=== PATIENT | female | born 2000 | race Caucasian/White ===

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

== ENCOUNTER 2019-07-07 17:18 | Emergency (ER) | payer MEDICAID ==
[2019-07-07] MEDS ORDERED: PREDNISONE 20 MG TAB PO ONE (17:56)
[2019-07-07] MEDS ORDERED: IBUPROFEN 400 MG TABLET PO ONE (17:56)
--- NOTE | 2019-07-07 18:00 | Emergency Department Record ---
History of Present Illness - General Chief complaint: Lower Extremity Pain Stated complaint: LT LEG NUMBNESS, Time Seen by Provider: 07/07/19 17:50 Source: Patient Mode of Arrival: Ambulatory Limitations: No limitations - History of Present Illness Initial comments: 18 yo female presents to ED for evaluation of left sided low back pain symptoms that began earlier today. Patient reports that her symptoms began after playing with her dog yesterday, denies direct injury of trauma to the area. Patient denies lower extremity weakness, numbness over the groin region, or urinary retention symptoms. Patient denies health problems at her baseline, denies fevers, chills, history of IVDA, or previous spinal surgery. MD Complaint: Other (Back pain) Onset/Timin -: Hour(s) Location: Left, Other History of Same: No Radiation: Distal Quality: Sharp Consistency: Intermittent Improves with: Nothing Worsens with: Nothing Associated Symptoms: Denies other symptoms - Related Data Previous Rx's Medication Instructions Recorded Ibuprofen [Motrin] 800 mg PO Q6H PRN #30 tab 07/07/19 Prednisone [Prednisone 20Mg] 20 mg PO BID #9 tab 07/07/19 Allergies Allergy/AdvReac Type Severity Reaction Status Date / Time No Known Allergies Allergy PT UNSURE Verified 07/07/19 17:40 OF REACTION Travel Screening - Travel/Exposure Within Last 30 Days Have you traveled within the last 30 days?: No Review of Systems Constitutional: Denies: Chills, Fever, Malaise, Night sweats Eyes: Denies: Eye discharge, Eye pain ENT: Denies: Congestion, Ear pain, Epistaxis Respiratory: Denies: Cough, Dyspnea Cardiovascular: Denies: Chest pain, Dyspnea on exertion Endocrine: Denies: Fatigue, Heat or cold intolerance Gastrointestinal: Denies: Abdominal pain, Nausea, Vomiting Genitourinary: Denies: Incontinence, Retention Musculoskeletal: Reports: Back pain. Denies: Arthralgia Skin: Denies: Bruising, Change in color, Other Neurological: Reports: Numbness. Denies: Abnormal gait, Confusion, Headache, Tingling, Tremors Psychiatric: Denies: Anxiety Hematological/Lymphatic: Denies: Anemia, Blood Clots Past Medical History - SOCIAL HISTORY Smoking Status: Never smoker Alcohol Use: None Drug Use: None - RESPIRATORY Hx Respiratory Disorders: No - CARDIOVASCULAR Hx Cardio Disorders: No - NEURO Hx Neuro Disorders: Yes Hx Headaches: Yes - GI Hx GI Disorders: Yes Hx Abdominal Pain: Yes Hx Reflux: Yes Hx Irritable Bowel: Yes - Hx Genitourinary Disorders: No Comment:: control - ENDOCRINE Hx Endocrine Disorders: No - MUSCULOSKELETAL Hx Musculoskeletal Disorders: Yes Comment:: neck issues - PSYCH Hx Psych Problems: No - HEMATOLOGY/ONCOLOGY Hx Hematology/Oncology Disorders: No Family Medical History Any Significant Family History?: No Physical Exam - General General Appearance: Alert, Oriented x3, Cooperative, Mild distress Limitations: No limitations - Head Head exam: Atraumatic, Normocephalic, Normal inspection Head exam detail: negative: Abrasion, Contusion, Garduno's sign, General tenderness, Hematoma, Laceration - Eye Eye exam: Normal appearance. negative: Conjunctival injection, Periorbital swelling, Periorbital tenderness, Scleral icterus - ENT Ear exam: negative: Auricular hematoma, Auricular trauma Nasal Exam: negative: Active bleeding, Discharge, Dried blood, Foreign body Mouth exam: negative: Drooling, Laceration, Muffled voice, Tongue elevation - Neck Neck exam: Normal inspection. negative: Meningismus, Tenderness - Respiratory Respiratory exam: Normal lung sounds bilaterally. negative: Respiratory distress, Rhonchi, Stridor, Wheezes - Cardiovascular Cardiovascular Exam: Regular rate, Normal rhythm, Normal heart sounds - GI/Abdominal GI/Abdominal exam: Soft. negative: Distended, Rebound, Rigid, Tenderness - Rectal Rectal exam: Deferred - exam: Deferred - Extremities Extremities exam: Normal inspection. negative: Pedal edema, Tenderness - Back Back exam: Reports: Paraspinal tenderness, Tenderness (TTP over the left SI joint with reproduction of the patient's pain symptoms.). Denies: CVA tenderness (R), CVA tenderness (L) - Neurological Neurological exam: Alert, Normal gait, Oriented X3 - Psychiatric Psychiatric exam: Normal affect, Normal mood - Skin Skin exam: Normal color. negative: Abrasion Type of lesion: negative: abrasion Course Vital Signs 07/07/19 17:36 Temperature 97.4 F L Pulse Rate 77 Respiratory 20 Rate Blood Pressure 115/69 Pulse Ox 100 - Reevaluation(s) Reevaluation #1: 07/07/19 18:05 Patient was seen and examined Pain is 100% reporoducible with palpation to the left SI joint region on examination No concerning history or physical examination findings for cauda equina/epidural abscess Radiographs are not indicated give tbhe absence of trauma or injury. Patient appears stable for discharge with symptomatic treatment as discussed with Prednisone and Motrin 800 mg. Patient is in agreement with the plan of care as discussed. Disposition Disposition: Discharge Clinical Impression: Low back strain Qualifiers: Encounter type: initial encounter Qualified Code(s): S39.012A - Strain of muscle, fascia and tendon of lower back, initial encounter Disposition: Home, Self-Care Condition: (2) Stable Instructions: Low Back Strain (ED) Additional Instructions: Return to ED if your symptoms worsen or if you have any concerns. Prednisone and Motrin 800 mg as directed. Follow-up with your family doctor in 3-5 days as directed. No lifting > 5 lbs for 1 week. Prescriptions: Ibuprofen [Motrin] 800 mg PO Q6H PRN #30 tab PRN Reason: Pain - Mod To Severe (5-10) Prednisone [Prednisone 20Mg] 20 mg PO BID #9 tab Forms: Patient Portal Access Time of Disposition: 18:00 Quality - Quality Measures Quality Measures: N/A - Blood Pressure Screening Does Patient Have Any of the Following: No Blood Pressure Classification: Normal BP Reading Systolic Measurement: 115 Diastolic Measurement: 69 Screening for High Blood Pressure: < Normal BP, F/U Not Required > [G8783]
== END 2019-07-07 18:17 | disposition home or self-care (01) ==
LOC: ER 17:18
DX: S39.012A Strain of muscle, fascia and tendon of lower back, initial encounter (principal); R20.0 Anesthesia of skin; X50.9XXA Other and unspecified overexertion or strenuous movements or postures, initial encounter; Y93.K9 Activity, other involving animal care
CPT/HCPCS: 99283; J7512

== ENCOUNTER 2019-08-25 03:58 | Emergency (ER) | payer MEDICAID ==
--- NOTE | 2019-08-25 04:15 | Emergency Department Record ---
History of Present Illness - General Chief complaint: Lower Extremity Pain Stated complaint: LEG NUMBNESS Time Seen by Provider: 08/25/19 04:14 Source: Patient Mode of Arrival: Ambulatory Limitations: No limitations - History of Present Illness Initial comments: 18 yo female presents to ED for evaluation of intermittent numbness and pain radiating from the lower left lumbar region down the posterior aspect of the left leg. Patient denies injury or trauma, denies lower extremity weakness symptoms, and denies numbness over the groin region or urinary retention symptoms. Patient denies health problems at her baseline. MD Complaint: Extremity pain Onset/Timin -: Days(s) Location: Left, Lower Leg, Thigh Severity scale (1-10): 8 Quality: Sharp, Stabbing Consistency: Intermittent Improves with: Movement Worsens with: Exertion, Weight bearing - Related Data Allergies Allergy/AdvReac Type Severity Reaction Status Date / Time No Known Allergies Allergy PT UNSURE Verified 08/25/19 04:11 OF REACTION Travel Screening - Travel/Exposure Within Last 30 Days Have you traveled within the last 30 days?: No - Travel/Exposure Within Last Year Have you traveled outside the [place] in the last year?: No - Additonal Travel Details Have you been exposed to anyone with a communicable illness?: No - Travel Symptoms Symptom Screening: None Review of Systems Constitutional: Denies: Chills, Fever, Malaise, Night sweats Eyes: Denies: Eye discharge, Eye pain ENT: Denies: Congestion, Ear pain, Epistaxis Respiratory: Denies: Cough, Dyspnea Cardiovascular: Denies: Chest pain, Dyspnea on exertion Endocrine: Denies: Fatigue, Heat or cold intolerance Gastrointestinal: Denies: Abdominal pain, Nausea, Vomiting Genitourinary: Denies: Incontinence, Retention Musculoskeletal: Denies: Arthralgia, Back pain Skin: Denies: Bruising, Change in color Neurological: Reports: Numbness, Other (Radiculopathy). Denies: Abnormal gait, Confusion, Headache, Seizure Psychiatric: Denies: Anxiety Hematological/Lymphatic: Denies: Anemia, Blood Clots Past Medical History - SOCIAL HISTORY Smoking Status: Never smoker Alcohol Use: None Drug Use: None - RESPIRATORY Hx Respiratory Disorders: No - CARDIOVASCULAR Hx Cardio Disorders: No - NEURO Hx Neuro Disorders: Yes Hx Headaches: Yes - GI Hx GI Disorders: Yes Hx Abdominal Pain: Yes Hx Reflux: Yes Hx Irritable Bowel: Yes - Hx Genitourinary Disorders: No Comment:: control - ENDOCRINE Hx Endocrine Disorders: No - MUSCULOSKELETAL Hx Musculoskeletal Disorders: Yes Comment:: neck issues - PSYCH Hx Psych Problems: No - HEMATOLOGY/ONCOLOGY Hx Hematology/Oncology Disorders: No Family Medical History Any Significant Family History?: No Physical Exam - General General Appearance: Alert, Oriented x3, Cooperative, No acute distress Limitations: No limitations - Head Head exam: Atraumatic, Normocephalic, Normal inspection Head exam detail: negative: Abrasion, Contusion, Garduno's sign, General tenderness, Hematoma, Laceration - Eye Eye exam: Normal appearance. negative: Conjunctival injection, Periorbital swelling, Periorbital tenderness, Scleral icterus - ENT Ear exam: negative: Auricular hematoma, Auricular trauma Nasal Exam: negative: Active bleeding, Discharge, Dried blood, Foreign body Mouth exam: negative: Drooling, Laceration, Muffled voice, Tongue elevation - Neck Neck exam: Normal inspection. negative: Meningismus, Tenderness - Respiratory Respiratory exam: Normal lung sounds bilaterally. negative: Rales, Respiratory distress, Rhonchi, Stridor - Cardiovascular Cardiovascular Exam: Regular rate, Normal rhythm, Normal heart sounds - GI/Abdominal GI/Abdominal exam: Soft. negative: Rebound, Rigid, Tenderness - Rectal Rectal exam: Deferred - exam: Deferred - Extremities Extremities exam: Normal inspection. negative: Pedal edema, Tenderness - Back Back exam: Reports: Paraspinal tenderness (Lower left lumbar region on examination). Denies: CVA tenderness (R), CVA tenderness (L) - Neurological Neurological exam: Alert, Normal gait, Oriented X3 - Psychiatric Psychiatric exam: Normal affect, Normal mood - Skin Skin exam: Normal color. negative: Abrasion Type of lesion: negative: abrasion Course Vital Signs 08/25/19 04:03 Temperature 98.7 F Pulse Rate [ 66 Pulse Ox Probe] Respiratory 20 Rate Blood Pressure 115/57 [Left Arm] Pulse Ox 99 - Reevaluation(s) Reevaluation #1: 08/25/19 04:18 History and physical examination appear c/w sciatica left lumbar region Will administer Solumedrol IM for probable nerve inflammation. Patient appears stable for discharge at this time. Disposition Disposition: Discharge Clinical Impression: Sciatica of left side Disposition: Home, Self-Care Condition: (2) Stable Instructions: Sciatica (ED) Additional Instructions: Return to ED if your symptoms worsen or if you have any concerns. Follow-up with your family doctor in 3-5 days as directed. Forms: Patient Portal Access Time of Disposition: 04:15 Quality - Quality Measures Quality Measures: N/A - Blood Pressure Screening Does Patient Have Any of the Following: No Blood Pressure Classification: Normal BP Reading Systolic Measurement: 115 Diastolic Measurement: 57 Screening for High Blood Pressure: < Normal BP, F/U Not Required > [[id number]]
[2019-08-25] MEDS: METHYLPREDNISOLONE PF 125MG/VIAL IM ONE (04:20)
== END 2019-08-25 04:40 | disposition home or self-care (01) ==
LOC: ER 03:58
DX: M54.42 Lumbago with sciatica, left side (principal)
CPT/HCPCS: 96372; 99284; J2930